=== PATIENT | female | born 1995 | race Asian ===

== ENCOUNTER 2019-10-01 18:58 | Emergency (ER) | payer OTHER ==
[2019-10-01 19:04] VITALS: BMI 20.4
--- NOTE | 2019-10-01 19:28 | PDOC ---
History of Present Illness - General Chief Complaint: Vomiting/Diarrhea Stated Complaint: VOMITING History Source: Patient Exam Limitations: No Limitations - History of Present Illness Initial Comments: 10/01/19 19:21 Patient is a 24 year old female with no pmhx c/o N/V/D since last night. States is unaware of any food or sick contacts. States she has had 6 episodes of vomiting today, intolerant of solids or liquid, last vomiting 20mins ago. Diarrhea is nonbloody and watery. Recently travelled to [facility] 1 month ago. Has no issues upon return. Denies abdominal pain, fever, chills, dysuria, cough. PMD: Dr. De La Cruz PMHX as above PSOCHX: neg etoh, drug, cig ALL: NKDA GENERAL/CONSTITUTIONAL: [No fever or chills. No weakness. No weight change.] HEAD, EYES, EARS, NOSE AND THROAT: [No change in vision. No ear pain or discharge. No sore throat.] CARDIOVASCULAR: [No chest pain or shortness of breath.] RESPIRATORY: [No cough, wheezing, or hemoptysis.] GASTROINTESTINAL: [No nausea, vomiting, diarrhea or constipation. No rectal bleeding.] GENITOURINARY: [No dysuria, frequency, or change in urination.] MUSCULOSKELETAL: [No joint or muscle swelling or pain. No neck or back pain.] SKIN AND BREASTS: [No rash or easy bruising.] NEUROLOGIC: [No headache, vertigo, loss of consciousness, or loss of sensation.] PSYCHIATRIC: [No depression or anxiety.] ENDOCRINE: [No increased thirst. No abnormal weight change.] HEMATOLOGIC/LYMPHATIC: [No anemia, easy bleeding, or history of blood clots.] ALLERGIC/IMMUNOLOGIC: [No hives or skin allergy. No latex allergy.] GENERAL: [The patient is awake, alert, and fully oriented, in no acute distress.] HEAD: [Normal with no signs of trauma.] EYES: [Pupils equal, round and reactive to light, extraocular movements intact, sclera anicteric, conjunctiva clear.] ENT: [Ears normal, nares patent, oropharynx clear without exudates. Moist mucous membranes.] NECK: [Normal range of motion, supple without lymphadenopathy, JVD, or masses.] LUNGS: [Breath sounds equal, clear to auscultation bilaterally. No wheezes, and no crackles.] HEART: [Regular rate and rhythm, normal S1 and S2 without murmur, rub.] ABDOMEN: [Soft, nontender, normoactive bowel sounds. No guarding, no rebound. No masses.] EXTREMITIES: [Normal range of motion, no edema. No clubbing or cyanosis. No cords, erythema, or tenderness.] NEUROLOGICAL: [Cranial nerves II through XII grossly intact. Normal speech, normal gait.] PSYCH: [Normal mood, normal affect.] SKIN: [Warm, Dry, normal turgor, no rashes or lesions noted.] Past History - Past Medical History Allergies/Adverse Reactions: Allergies Allergy/AdvReac Type Severity Reaction Status Date / Time No Known Allergies Allergy Verified 10/01/19 19:03 Home Medications: Ambulatory Orders NK [No Known Home Medication] 10/01/19 COPD: No - Psycho Social/Smoking Cessation Hx Smoking History: Never smoked *Physical Exam - Vital Signs Last Vital Signs Temp Pulse Resp BP Pulse Ox 99.2 F 133 H 20 107/62 99 10/01/19 19:01 10/01/19 19:01 10/01/19 19:01 10/01/19 19:01 10/01/19 19:01 ED Treatment Course - LABORATORY CBC & Chemistry Diagram: 10/01/19 19:45 10/01/19 19:45 Medical Decision Making - Medical Decision Making 10/01/19 19:21 Patient is a 24 year old female with no pmhx c/o N/V/D since last night. States is unaware of any food or sick contacts. [facility] she has had 6 episodes of vomiting today, intolerant of solids or liquid, last vomiting 20mins ago. Diarrhea is nonbloody and watery. Recently travelled to [place] 1 month ago, had no issues upon return. Denies abdominal pain, fever, chills, dysuria, cough. Symptoms consistent with gastroenteritis. Labs Pepcid, Zofran, IV fluids Reassess Labs reviewed noted potassium at 3.4 however if patient can tolerate p.o. we will be able to replace potassium at home 10/01/19 21:23 Patient feels improved p.o. challenge given and is tolerating. She is wanting to be discharged Repeat vitals noted pulse at 112. Given another liter of fluid. UA noted ketones but patient currently receiving fluid. 10/01/19 21:25 Potassium and mag sulfate ordered for the patient however has refused. Re-eval: No nausea no vomiting Selected Entries 10/01/19 21:50 Temperature 102.4 F H Pulse Rate [ 107 H Right Radial] Respiratory 18 Rate Blood Pressure 102/67 [Left Arm] O2 Sat by Pulse 100 Oximetry (%) Noted to have a fever Motrin 600 mg given. Flu swab done. Patient with negative flu swab I discussed the physical exam findings, ancillary test results and final diagnoses with the patient. I answered all of the patient's questions. The patient was satisfied with the care received and felt comfortable with the discharge plan and treatment plan. The Patient agrees to follow up with the primary care physician within 24-72 hours. Discharge - Discharge Information Problems reviewed: Yes Clinical Impression/Diagnosis: Nausea vomiting and diarrhea, Dehydration Condition: Stable Disposition: HOME - Follow up/Referral Referrals: ON STAFF,NOT [Primary Care Provider] - - Patient Discharge Instructions Patient Printed Discharge Instructions: DI for Diarrhea and Traveler's Diarrhea -- Adult, DI for Vomiting -- Adult Additional Instructions: Your Discharge Instructions: You must call primary care physician within 24 hours to arrange follow-up. Return to the Emergency Department with any new, persistent or worsening symptoms, for fever, chills, SOB, dizziness or any other concerning changes that may occur. Continue to p.o. hydrate. Take a BRAT (BREAD, RICE, APPLE SAUCE, TOAST) diet for 24 to 48 hours. - Post Discharge Activity
[2019-10-01] MEDS ORDERED: FAMOTIDINE 20 MG/50 ML IVPB 20 MG/50 ML MG IVPB ONE ×2 (19:32→19:50)
[2019-10-01] MEDS ORDERED: SODIUM CHLORIDE 0.9% 500 ML INFUS.BAG IV ONE ×2 (19:32→20:43)
[2019-10-01] MEDS ORDERED: ONDANSETRON 4 MG/2 ML VIAL IVPUSH ONE (19:32)
[2019-10-01] MEDS ORDERED: ONDANSETRON 4 MG/2 ML VIAL ONE (19:50)
[2019-10-01 20:06] LABS: BASO % 0.3 % (0-2.0); EOS % 0.4 % (0-4.5); HEMATOCRIT 42.8 % (32.4-45.2); HEMOGLOBIN 14.5 GM/dL (10.7-15.3); LYMPH % 7.2 % (8-40); MCH 28.6 pg (25.7-33.7); MCHC 33.9 g/dl (32.0-36.0); MEAN CELL VOLUME 84.3 fl (80-96); MEAN PLT VOLUME 10.6 fl (7.5-11.1); MONO % 7.6 % (3.8-10.2); NEUT % 84.5 % (42.8-82.8); PLATELET COUNT 267 K/MM3 (134-434); RBC 5.08 M/mm3 (3.60-5.2); RDW 14.5 % (11.6-15.6); WHITE BLOOD COUNT 9.4 K/mm3 (4.0-10.0)
[2019-10-01 20:40] LABS: ALK PHOS 70 U/L (45-117); ANION GAP 9 MMOL/L (8-16); BILIRUBIN,TOTAL 0.9 mg/dL (0.2-1); BLOOD UREA NITROGEN 13.5 mg/dL (7-18); CALCIUM 8.5 mg/dL (8.5-10.1); CHLORIDE 104 mmol/L (98-107); CO2 25 mmol/L (21-32); CREATININE 0.7 mg/dL (0.55-1.3); GLUCOSE,RANDOM 93 mg/dL (74-106); POTASSIUM 3.4 mmol/L (3.5-5.1); SGOT/AST 16 U/L (15-37); SGPT/ALT 19 U/L (13-61); SODIUM 138 mmol/L (136-145)
[2019-10-01 20:53] LABS: EPI CELLS 3.2 /HPF (0-5/HPF); HYALINE CASTS 6 /lpf (0-8); URINE APPEARANCE CLEAR; URINE BACTERIA 8.2 /hpf (NEGATIVE); URINE BILIRUBIN NEGATIVE (NEGATIVE); URINE COLOR YELLOW; URINE GLUCOSE (UA) NEGATIVE (NEGATIVE); URINE KETONE 2+ (NEGATIVE); URINE LEUK ESTERASE NEGATIVE (NEGATIVE); URINE NITRITE NEGATIVE (NEGATIVE); URINE PROTEIN NEGATIVE (NEGATIVE); URINE RBC 91 /hpf (0-4); URINE UROBILINOGEN 0.2 mg/dL (0.2-1.0); URINE WBC 5 /hpf (0-5)
[2019-10-01] MEDS ORDERED: MAGNESIUM SULF 50% (8.12 MEQ/2 ML-1 GM VIAL) IVPB ONE (21:09)
[2019-10-01] MEDS ORDERED: POTASSIUM CHLORIDE TABS 20 MEQ TABLET.ER (FP) PO ONE (21:13)
[2019-10-01] MEDS ORDERED: MAGNESIUM SULF 50% (8.12 MEQ/2 ML-1 GM VIAL) ONE (21:13)
[2019-10-01] MEDS: POTASSIUM CHLORIDE TABS 20 MEQ TABLET.ER (FP) PO ONE ×2 (21:18→21:28)
[2019-10-01] MEDS ORDERED: IBUPROFEN 600 MG TABLET (FP) PO ONE ×2 (21:44→21:51)
[2019-10-01 21:51] VITALS: BP 102/67
[2019-10-01 22:48] VITALS: PULSE 99; TEMP 98.3
== END 2019-10-01 22:49 | disposition home or self-care (01) ==
LOC: JER 18:58 → SUPCPDRO 18:58 → JER 22:49
PROC: 3E033GC Introduction of Other Therapeutic Substance into Peripheral Vein, Percutaneous Approach (ICD-10-PCS; principal; 2019-10-01)
PROC: 3E033GC Introduction of Other Therapeutic Substance into Peripheral Vein, Percutaneous Approach (ICD-10-PCS; 2019-10-01)
DX: K52.9 Noninfective gastroenteritis and colitis, unspecified (principal); E86.0 Dehydration; E87.6 Hypokalemia
CPT/HCPCS: 36415; 80053; 81003; 84702; 85025; 87804; 99284-25